=== PATIENT | male | born 1985 | race Caucasian/White ===

== ENCOUNTER 2024-06-13 01:34 | Emergency (ER) | payer SELFPAY ==
[~2024-06-13] VITALS: Ht 193 cm; Wt 105.0 kg
[2024-06-13 01:36] VITALS: BP 139/79; PULSE 89; RESP 14; O2SAT 98
== END 2024-06-13 02:22 | disposition home or self-care (01) ==
LOC: ER 01:52
DX: F10.129 Alcohol abuse with intoxication, unspecified (principal); Y90.9 Presence of alcohol in blood, level not specified
CPT/HCPCS: 99283